=== PATIENT | female | born 1995 | race Caucasian/White ===

== ENCOUNTER 2019-08-13 18:50 | Emergency (ER) | payer OTHER ==
[~2019-08-13] VITALS: Ht 170.2 cm; Wt 84.8 kg
[2019-08-13 18:57] VITALS: BP 110/77
[2019-08-13] MEDS ORDERED: NACL 0.9% 1,000 ML IV ONE (19:13)
[2019-08-13] MEDS ORDERED: ONDANSETRON 4 MG/2 ML VIAL IVP ONE (19:15)
[2019-08-13] MEDS ORDERED: LIDOCAINE VISCOUS 2% 20 ML UDC ONE (19:27)
[2019-08-13] MEDS ORDERED: ALUMINUM HYD/MAG/SIMETHICONE 30 ML UDC ONE (19:27)
[2019-08-13] MEDS ORDERED: DICYCLOMINE HCL LIQUID 10 MG/5 ML UDC ONE (19:27)
[2019-08-13] MEDS: DICYCLOMINE HCL LIQUID 20 MG, ALUMINUM HYD/MAG/SIMETHICONE 30 ML, LIDOCAINE VISCOUS 2% ... PO ONE ×3 (19:37)
[2019-08-13] MEDS: ONDANSETRON 4 MG ODT PO ONE (19:38)
--- NOTE | 2019-08-13 19:44 | NUR ---
24 Y/O FEMALE C/O EPIGASTRIC PAIN X1 DAY. PT REPORTS TO DRINKING A LARGE AMOUNT OF ALCOHOL YEST AND HAS BEEN VOMITING ALL DAY TODAY. ABD SOFT/NON DISTENDED. BOWEL SOUNDS NORMOACTIVE IN ALL QUADRANTS. RESP EVEN AND UNLABORED. LUNG SOUNDS CLEAR IN ALL KHALIL. SKIN COOL/DRY. CAP REFILL <3. NKDA
[2019-08-13 19:59] LABS: APPEARANCE,URINE CLEAR (CLEAR); BILIRUBIN,URINE NEGATIVE (NEGATIVE); BLOOD, URINE NEGATIVE (NEGATIVE); COLOR,URINE YELLOW (YELLOW); LEUKOCYTE ESTERASE ,URINE NEGATIVE (NEGATIVE); NITRITE, URINE NEGATIVE (NEGATIVE); UGLUCOSE NEGATIVE (NEGATIVE)
[2019-08-13 20:16] LABS: ALBUMIN 3.8 g/dL (3.4-5.0); ANION GAP 13.1 (8-16); CARBON DIOXIDE 26.5 mmol/L (21-32); CREATININE 0.7 mg/dL (0.6-1.3); POTASSIUM 3.6 mmol/L (3.5-5.1); TOTAL BILIRUBIN 0.5 mg/dL (0.0-1.0)
[2019-08-13 20:19] LABS: BASOPHILS % (AUTO) 0.5 % (0.0-2.0); MONOCYTES # (AUTO) 0.8 K/uL (0.8-1.0); NEUTROPHILS % (AUTO) 72.1 % (42.2-75.2)
[2019-08-13 20:24] LABS: EOSINOPHILS % (AUTO) 0.4 % (0.0-4.0); HEMATOCRIT 42.6 % (36-48); HEMOGLOBIN 14.4 g/dL (12.0-16.0); LYMPHOCYTES # (AUTO) 1.7 K/uL (2.5-16.5); LYMPHOCYTES % (AUTO) 18.6 % (20.5-51.1); MEAN CORPUSCULAR HEMOGLOBIN 31 pg (27-31); MEAN CORPUSCULAR HGB CONC 34 g/dL (33-37); MEAN CORPUSCULAR VOLUME 92.4 fL (80-94); MONOCYTES % (AUTO) 8.4 % (1.7-9.3); NEUTROPHILS # (AUTO) 6.5 K/uL (1.8-7.7); PLATELET COUNT (AUTO) 209 K/uL (140-450); RED BLOOD CELL COUNT(AUTO) 4.61 MIL/uL (4.20-5.40); RED CELL DISTRIBUTION WIDTH 13.4 % (11.6-13.7)
--- NOTE | 2019-08-13 21:05 | NUR ---
Patient discharged with v/s stable. Written and verbal after care instructions given and explained. Patient alert, oriented and verbalized understanding of instructions. Ambulatory with steady gait. All questions addressed prior to discharge. ID band removed. Patient advised to follow up with PMD. Rx of RAISA LOPEZ given. Patient educated on indication of medication including possible reaction and side effects. Opportunity to ask questions provided and answered.
[2019-08-13 21:06] VITALS: BP 110/77
== END 2019-08-13 21:05 | disposition home or self-care (01) ==
LOC: MED 18:50
DX: R10.13 Epigastric pain (principal); R11.10 Vomiting, unspecified
CPT/HCPCS: 36415; 80053; 81003; 81025; 83690; 85025; 99283; Q0162